=== PATIENT | female | born 1955 | race Caucasian/White ===

== ENCOUNTER 2023-09-30 21:24 | Emergency (ER) | payer MEDICARE, OTHER | END 2023-09-30 22:52 | disposition home or self-care (01) | LOC: JP.ED 21:24 | DX: S63.502A Unspecified sprain of left wrist, initial encounter (principal); S70.01XA Contusion of right hip, initial encounter; E05.90 Thyrotoxicosis, unspecified without thyrotoxic crisis or storm; Z88.1 Allergy status to other antibiotic agents; Z79.890 Hormone replacement therapy; W09.1XXA Fall from playground swing, initial encounter; Y93.89 Activity, other specified | CPT/HCPCS: 29125; 73110-26-LT; 73110-LT; 73502-26-RT; 73502-RT; 99283-25 ==